=== PATIENT | female | born 1985 | race Caucasian/White ===

== ENCOUNTER 2018-08-19 18:02 | Emergency (ER) | payer SELFPAY ==
[2018-08-19] MEDS ORDERED: Famotidine 20 MG TAB ONE (18:44)
[2018-08-19] MEDS ORDERED: predniSONE 20 MG TAB ONE (18:44)
[2018-08-19] MEDS ORDERED: diphenhydrAMINE 25 MG CAP ONE (18:44)
== END 2018-08-19 18:59 | disposition home or self-care (01) ==
LOC: SCSER 18:02
DX: L50.9 Urticaria, unspecified (principal)
CPT/HCPCS: 99282; Q0163

== ENCOUNTER 2024-01-15 07:22 | Emergency (ER) | payer BC | END 2024-01-15 08:18 | disposition home or self-care (01) | LOC: ERS 07:22 | DX: U07.1 COVID-19 (principal); H66.93 Otitis media, unspecified, bilateral; J32.0 Chronic maxillary sinusitis | CPT/HCPCS: 99282 ==

== ENCOUNTER 2024-03-14 09:52 | Emergency (ER) | payer BC ==
[2024-03-14 10:55] LABS: #Basophils 0.06 10x3/uL (0.0-0.2); %Basophils 0.8 % (0.0-1.0); %Eosinophils 3.3 % (0.0-10.0); %Lymphocytes 23.8 % (21.0-51.0); %Monocytes 5.7 % (0.0-10.0); Hematocrit 40.6 % (36.0-47.0); Hemoglobin 13.1 g/dL (12.0-16.0); Mean Corpuscular HGB CONC 32.3 g/dL (32.0-36.0); Mean Corpuscular Hemoglobin 29.4 pg (27.0-31.0); Mean Platelet Volume 9.5 fL (7.4-10.4); Platelet Count 362 10x3/uL (130-400); RBC Distribution Width 13.7 % (11.5-14.5); Red Blood Cell (RBC) Count 4.46 mill/uL (4.20-5.40)
[2024-03-14 11:16] LABS: ALT (SGPT) 26 U/L (8-55); AST (SGOT) 19 U/L (5-34); Albumin 3.7 g/dL (3.5-5.0); Alkaline Phosphatase 90 U/L (40-110); Anion Gap 10 mmol/L (10-20); BUN (Urea Nitrogen) 8 mg/dL (7.0-18.7); Bilirubin, Total 0.3 mg/dL (0.2-1.2); Calc. Creatinine Clearance 0 mL/min (70-130); Calcium 9.5 mg/dL (7.8-10.44); Carbon Dioxide 25 mmol/L (22-29); Chloride 107 mmol/L (98-107); Estimated GFR 116; Globulin 3.5 g/dL (2.4-3.5); Glucose 86 mg/dL (70-105); Potassium 3.7 mmol/L (3.5-5.1); Protein, Total 7.2 g/dL (6.0-8.3); Sodium 138 mmol/L (136-145)
[2024-03-14 11:44] LABS: Bacteria/HPF 4+ HPF (None Seen); Bilirubin Negative (Negative); Blood, Urine 3+ (Negative); CAUTI Indications for Culture Pelvic or flank pain; Clarity Turbid (Clear); Glucose, Urine (Dipstick) Normal (Negative); Ketone, Urine Negative (Negative); Leukocyte Negative Leu/uL (Negative); Nitrite 2+ (Negative); Protein, Urine (Dipstick) Negative (Neg-Trace); RBC/HPF 0-3 HPF (0-3); Specific Gravity, Urine 1.003 (1.002-1.036); Urobilinogen Normal mg/dL (Less than 2); pH, Urine 5.5 (5.0-9.0)
[2024-03-14 11:45] LABS: Urine Culture Reflex No No
== END 2024-03-14 15:03 | disposition home or self-care (01) ==
LOC: ERS 09:52
DX: N39.0 Urinary tract infection, site not specified (principal); I10 Essential (primary) hypertension; Z79.899 Other long term (current) drug therapy
CPT/HCPCS: 36415; 80053; 81001; 84702; 85025; 86900; 86901; 99284